=== PATIENT | female | born 1965 | race Caucasian/White ===

== ENCOUNTER 2020-02-29 13:06 | Observation (INO) ==
[2020-02-29] MEDS ORDERED: levoFLOXacin 750 MG/150 ML 750 MG/150 ML BAG IVPB ONE (13:42)
[2020-02-29] MEDS ORDERED: 0.9 % Sodium Chloride 1,000 ML IVC ONE (13:42)
[2020-02-29] MEDS ORDERED: Dexamethasone 4 MG/ML VIAL IVP ONE (13:43)
[2020-02-29 14:02] LABS: Basophils % 0.2 %; Eosinophils % 0.1 %; Hematocrit 34.3 % (35.3-44.9); Hemoglobin 11.6 g/dL (11.5-15.4); Immature Granulocytes % 1.1 % (0-4); Lymphocytes # 1.6 K/mcL (0.6-4.6); Lymphocytes % 17.8 %; Mean Corpuscular HGB Conc 33.8 g/dL (31.6-35.5); Mean Corpuscular Hemoglobin 27.8 pg (28.0-33.3); Mean Corpuscular Volume 82.1 fL (83.0-100.0); Mean Platelet Volume 8.7 fL (9.4-12.4); Monocytes # 0.4 K/mcL (0.0-1.3); Monocytes % 4.2 %; Neutrophils # 6.8 K/mcL (1.6-8.9); Platelet Count 207 K/mcL (140-400); Red Blood Count 4.18 M/mcL (3.82-4.97); Red Cell Distribution Width 14.7 % (11.5-14.5); Segmented Neutrophils % 76.6 %; White Blood Count 8.9 K/mcL (4.3-11.1)
[2020-02-29 14:08] LABS: INR 1.2; Prothrombin Time 13.1 Seconds (9.4-12.1)
[2020-02-29 14:08] LABS: VBG HCO3 23 mEq/L (21-27); VBG PCO2 33 mmHg (41-51); VBG PH 7.44 pH Units (7.32-7.42); VBG PO2 67 mmHg (25-50)
[2020-02-29 14:10] LABS: Activated Partial Thrombo Time 27.4 Seconds (26.0-36.0)
[2020-02-29 14:18] LABS: Alanine Aminotransferase 25 Units/L (7-52); Albumin 3.8 g/dL (3.5-5.7); Albumin/Globulin Ratio 1.4 (1.1-2.2); Alkaline Phosphatase 69 Units/L (34-104); Aspartate Amino Transferase 22 Units/L (13-39); BUN/Creatinine Ratio 35 (6-26); Bilirubin,Indirect 0.4 mg/dL (0.0-1.0); Bilirubin,Total 0.4 mg/dL (0.3-1.0); Blood Urea Nitrogen 29 mg/dL (6-20); Calcium 8.6 mg/dL (8.6-10.3); Carbon Dioxide 23 mEq/L (23-29); Chloride 97 mEq/L (98-107); Globulin 2.7 g/dL (2.4-3.5); Glucose 278 mg/dL (70-105); Osmolality,Calculated 296 (280-300); Potassium 2.9 mEq/L (3.5-5.1); Sodium 135 mEq/L (136-145); Total Protein 6.5 g/dL (6.4-8.9); eGFR For African Americans > 60 (> 60); eGFR For Non-African Americans > 60 (> 60)
[2020-02-29 14:20] LABS: Troponin I < 0.03 ng/mL (< 0.04)
[2020-02-29 14:23] LABS: Bilirubin,Urine Negative (Negative); Blood,Urine Negative (Negative); Clarity,Urine Clear (Clear); Color,Urine Yellow (Yellow); Glucose,Urine (UA) 100 mg/dL (Normal); Ketones,Urine Negative (Negative); Leukocyte Esterase,Urine Negative (Negative); Nitrite,Urine Negative (Negative); Protein,Urine Negative (Neg-Trace); Urobilinogen,Urine Normal (Normal)
[2020-02-29 14:34] LABS: Squamous Epithelial Cell,Urine Moderate per hpf (None-Few); WBC,Urine 0-3 per hpf (0-3)
[2020-02-29] MEDS ORDERED: Naloxone 0.4 MG/ML INJ IVP PRN (15:09)
[2020-02-29] MEDS ORDERED: Acetaminophen 325 MG TABLET PO PRN (15:09)
[2020-02-29] MEDS ORDERED: 0.9 % Sodium Chloride 1,000 ML IVC SCH (15:15)
[2020-02-29] MEDS ORDERED: *HR* Dextrose 50 % in Water (Vial) 50 ML VIAL IVP PRN (15:38)
[2020-02-29] MEDS ORDERED: D5% in Water 1,000 ML IVC PRN (15:38)
[2020-02-29] MEDS ORDERED: Dextrose Gel 15 GM/37.5 ML TUBE PO PRN ×2 (15:38)
[2020-02-29] MEDS: Insulin LISPRO 300 UNITS/3 ML VIAL SUBQ SCH (19:33)
[2020-02-29] MEDS ORDERED: traZODone 50 MG TABLET PO SCH (21:00)
[2020-02-29] MEDS ORDERED: Insulin LISPRO 300 UNITS/3 ML VIAL SUBQ SCH (21:00)
[2020-02-29] MEDS: Ondansetron 4 MG/2 ML VIAL IVP PRN (21:04)
[2020-02-29] MEDS: Gabapentin 300 MG CAPSULE PO SCH (21:05)
[2020-02-29] MEDS: Celecoxib 100 MG CAPSULE PO SCH (21:05)
[2020-02-29] MEDS: Insulin DETEMIR 100 UNIT/ML per UNIT SUBQ SCH (21:11)
[2020-02-29] MEDS: Budesonide/Formoterol 160/4.5 1 PUFF INH IH SCH (22:01)
[2020-03-01 05:44] LABS: Hematocrit 32.9 % (35.3-44.9); Hemoglobin 11.1 g/dL (11.5-15.4); Mean Corpuscular HGB Conc 33.7 g/dL (31.6-35.5); Mean Corpuscular Hemoglobin 27.5 pg (28.0-33.3); Mean Corpuscular Volume 81.6 fL (83.0-100.0); Mean Platelet Volume 8.8 fL (9.4-12.4); Platelet Count 205 K/mcL (140-400); Red Blood Count 4.03 M/mcL (3.82-4.97); Red Cell Distribution Width 14.5 % (11.5-14.5); White Blood Count 5.1 K/mcL (4.3-11.1)
[2020-03-01] MEDS ORDERED: *HR* Enoxaparin 40 MG/0.4 ML SYRINGE SQ SCH (06:00)
[2020-03-01 06:01] LABS: Alanine Aminotransferase 30 Units/L (7-52); Albumin 3.6 g/dL (3.5-5.7); Albumin/Globulin Ratio 1.3 (1.1-2.2); Alkaline Phosphatase 74 Units/L (34-104); Aspartate Amino Transferase 19 Units/L (13-39); BUN/Creatinine Ratio 32 (6-26); Bilirubin,Total 0.4 mg/dL (0.3-1.0); Blood Urea Nitrogen 22 mg/dL (6-20); Calcium 8.6 mg/dL (8.6-10.3); Carbon Dioxide 26 mEq/L (23-29); Chloride 100 mEq/L (98-107); Globulin 2.7 g/dL (2.4-3.5); Glucose 193 mg/dL (70-105); Osmolality,Calculated 293 (280-300); Potassium 3.6 mEq/L (3.5-5.1); Sodium 137 mEq/L (136-145); Total Protein 6.3 g/dL (6.4-8.9); eGFR For African Americans > 60 (> 60); eGFR For Non-African Americans > 60 (> 60)
[2020-03-01] MEDS: Ondansetron 4 MG/2 ML VIAL IVP PRN (06:44)
[2020-03-01 08:58] LABS: Ferritin 179 ng/mL (10-120)
[2020-03-01] MEDS ORDERED: hydroCHLOROthiazide 25 MG TABLET PO SCH (09:00)
[2020-03-01] MEDS ORDERED: Dexamethasone Sodium Phos/PF 10 MG/ML VIAL IVP SCH (09:00)
[2020-03-01] MEDS ORDERED: levoFLOXacin 750 MG/150 ML 750 MG/150 ML BAG IVPB SCH (09:00)
[2020-03-01] MEDS ORDERED: VALSARTAN PO SCH (09:00)
[2020-03-01] MEDS ORDERED: Valsartan 160 MG TABLET PO SCH (09:00)
[2020-03-01] MEDS ORDERED: HYDROCHLOROTHIAZIDE PO SCH (09:00)
[2020-03-01] MEDS ORDERED: [UNRECOGNIZED DRUG - OTHER] PO SCH (09:00)
[2020-03-01] MEDS ORDERED: Aspirin Enteric Coated 81 MG Tablet PO SCH (09:00)
[2020-03-01] MEDS ORDERED: amLODIPine 5 MG TABLET PO SCH (09:00)
[2020-03-01 09:02] VITALS: BP 155/80
[2020-03-01] MEDS ORDERED: levoFLOXacin 750 MG TABLET PO SCH (09:21)
[2020-03-01] MEDS: Insulin LISPRO 300 UNITS/3 ML VIAL SUBQ SCH (09:39)
[2020-03-01] MEDS: Insulin DETEMIR 100 UNIT/ML per UNIT SUBQ SCH (09:40)
[2020-03-01 09:43] LABS: C-Reactive Protein 13 mg/L (Less than 10)
[2020-03-01] MEDS: Celecoxib 100 MG CAPSULE PO SCH (09:43)
[2020-03-01] MEDS: Gabapentin 300 MG CAPSULE PO SCH (09:44)
[2020-03-01] MEDS ORDERED: Tiotropium 10 INH DOSE IH SCH (10:00)
[2020-03-01] MEDS: Budesonide/Formoterol 160/4.5 1 PUFF INH IH SCH (10:10)
[2020-03-01 11:00] LABS: Estimated Average Glucose 255 mg/dl; Hemoglobin A1C 10.5 %
[2020-03-01] MEDS ORDERED: Insulin DETEMIR 100 UNIT/ML X5UNITS SUBQ SCH (21:00)
== END 2020-03-01 11:27 | disposition home or self-care (01) ==
LOC: EMEROOGRE 13:06 → INTOOBSV 18:43 → INPGRE 18:43
PROVIDERS: ADMIT Family Medicine; ATTEND Family Medicine